=== PATIENT | female | born 1980 | race Hispanic/Latino ===

== ENCOUNTER 2020-01-05 20:14 | Emergency (ER) | payer SELFPAY ==
[2020-01-05 20:50] VITALS: BP 139/84
--- NOTE | 2020-01-05 21:12 | Emergency Department Report ---
{null, Blank Doc - Documentation Documentation: 39-year-old female that presents with headache and neck pain s/p tree branch f eel on patient. This initial assessment/diagnostic orders/clinical plan/treatment(s) is/are subject to change based on patient's health status, clinical progression and re- assessment by fellow clinical providers in the ED. Further treatment and workup at subsequent clinical providers discretion. Patient/guardians urged not to elope from the ED as their condition may be serious if not clinically assessed and managed. Initial orders include: 1- Patient sent to [facility] for further evaluation and treatment 2- CT scans 3- cervical collar }
--- NOTE | 2020-01-05 22:21 | Cat Scan Report ---
{null, CT head without contrast INDICATION : "tree fell on head". TECHNIQUE: Axial imaging performed from the skull apex through the skull base without the use of con trast. All CT scans at this location are performed using CT dose reduction for ALARA by means of aut omated exposure control. COMPARISON: CT head from 10/17/2014 FINDINGS: Parenchyma: No acute intracranial hemorrhage or parenchymal abnormality. Ventricles: Ventricles are normal in size and appear symmetric. Soft tissues: Soft tissues including the orbits appear normal. Bones: No acute osseous abnormality. Sinuses: Sinuses and mastoid air cells are clear. IMPRESSION: No acute abnormality. Signer Name: Dany Tello MD Signed: 01/05/2020 10:17 PM Workstation Name: [id number] }
--- NOTE | 2020-01-05 22:34 | Cat Scan Report ---
{null, CT cervical spine spine without contrast INDICATION: neck pain. TECHNIQUE: Axial imaging performed through the cervical spine without the use of contrast. Sagittal and coronal reconstructed images were also reviewed. All CT scans at this location are performed us ing CT dose reduction for ALARA by means of automated exposure control. COMPARISON: None FINDINGS: Alignment: Spinal alignment is normal. Bones: There is no acute osseous abnormality. Mild multilevel discogenic DJD is present. Soft tissues: No acute or significant incidental soft tissue abnormality. IMPRESSION: No acute abnormality. Signer Name: Dany Tello MD Signed: 01/05/2020 10:30 PM Workstation Name: [id number] }
[2020-01-05] MEDS ORDERED: ACETAMINOPHEN W/CODEINE 300-30 MG TAB PO ONE (23:42)
--- NOTE | 2020-01-05 23:47 | Emergency Department Report ---
{null, ED Head Trauma HPI - General Chief complaint: Head Injury Stated complaint: TREE FELL ON HEAD Time Seen by Provider: 01/05/20 21:11 Source: family Mode of arrival: Ambulatory Limitations: No Limitations - History of Present Illness Initial comments: Ms James is a 39 y/o w/f who presents for headache and neck pain s/p tree branch feel on patient. She states she was sitting at the dinner table and a tree branch came through the wall and struck in head. There was no LOC patient was immediately amatory after the incident she arrived to ED via POV and family member. She is alert oriented x3 ,ambulatory with steady gait, there are no abrasions lacerations or bleeding ,no obvious deformities or swelling. She describes headache is 4/10 exacerbated by movement and palpation. , Symptoms are relieved by rest. MD Complaint: head pain Onset/Timin -: hour(s) Mechanism of Injury: other (tree branch versus head ) Location: parietal (right ) Loss of Consciousness: no Previous Trauma to this Area: No Place: home Radiation: none Severity: moderate Severity scale (0 -10): 4 Quality: aching Consistency: constant Provoking factors: other (movement palpation) Other Injuries: none Associated Symptoms: denies: confusion, amnesia, repetitive questioning, vision changes, nausea, vomiting, vertigo, syncope, numbness, weakness, tingling, neck pain - Related Data Previous Rx's Medication Instructions Recorded Last Taken Type Acetaminophen/Codeine [Tylenol 1 tab PO Q6H PRN #12 tab 01/05/20 Unknown Rx /Codeine # 3 tab] Allergies/Adverse reactions: Allergies Allergy/AdvReac Type Severity Reaction Status Date / Time No Known Allergies Allergy Verified 10/17/14 03:43 ED Review of Systems ROS: Stated complaint: TREE FELL ON HEAD Other details as noted in HPI Constitutional: denies: chills, fever Eyes: denies: eye pain, eye discharge, vision change ENT: denies: ear pain, throat pain Respiratory: denies: cough, shortness of breath, wheezing Cardiovascular: denies: chest pain, palpitations Endocrine: no symptoms reported Gastrointestinal: denies: abdominal pain, nausea, diarrhea Genitourinary: denies: urgency, dysuria, discharge Musculoskeletal: denies: back pain, joint swelling, arthralgia Skin: denies: rash, lesions Neurological: headache. denies: weakness, numbness, paresthesias, confusion, abnormal gait, vertigo Psychiatric: denies: anxiety, depression Hematological/Lymphatic: denies: easy bleeding, easy bruising ED Past Medical Hx - Past Medical History Additional medical history: TBI many years ago. - Surgical History Additional Surgical History: Head surgery after TBI - Social History Smoking Status: Current Every Day Smoker Substance Use Type: Alcohol - Medications Home Medications: Home Medications Medication Instructions Recorded Confirmed Last Taken Type Acetaminophen/Codeine [Tylenol 1 tab PO Q6H PRN #12 tab 01/05/20 Unknown Rx /Codeine # 3 tab] ED Physical Exam - General Limitations: No Limitations General appearance: alert, in no apparent distress - Head Head exam: Present: atraumatic, normocephalic - Eye Eye exam: Present: normal appearance, PERRL, EOMI Pupils: Present: normal accommodation - ENT ENT exam: Present: normal orophraynx, mucous membranes moist, TM's normal bilaterally, normal external ear exam - Neck Neck exam: Present: normal inspection, full ROM. Absent: tenderness, lymphadenopathy, thyromegaly - Expanded Neck Exam Expanded Neck exam: Absent: tenderness (rom intact and unrestricted ), midline deformity, carotid bruit - Respiratory Respiratory exam: Present: normal lung sounds bilaterally, chest wall tenderness. Absent: respiratory distress, wheezes, rales, rhonchi, stridor - Cardiovascular Cardiovascular Exam: Present: regular rate, normal rhythm, normal heart sounds. Absent: systolic murmur, diastolic murmur, rubs, gallop - GI/Abdominal GI/Abdominal exam: Present: soft, normal bowel sounds. Absent: distended, tenderness, guarding, rebound, rigid, bruit, hernia - Rectal Rectal exam: Present: deferred - Extremities Exam Extremities exam: Present: normal inspection, full ROM. Absent: tenderness, pedal edema - Back Exam Back exam: Present: normal inspection, full ROM. Absent: tenderness, CVA tenderness (R), CVA tenderness (L), vertebral tenderness - Neurological Exam Neurological exam: Present: alert, oriented X3, CN II-XII intact, normal gait, reflexes normal. Absent: motor sensory deficit - Expanded Neurological Exam Expanded Patient oriented to: Present: person, place, time Speech: Present: fluid speech Cranial nerves: EOM's Intact: Normal, Gag Reflex: Normal, Tongue Deviation: Normal, Nystagmus: Normal, Facial Sensation: Normal Motor strength exam: RUE: 5, LUE: 5, RLE: 5, LLE: 5 Best Eye Response ([place]): (4) open spontaneously Best Motor Response ([place]): (6) obeys commands Best Verbal Response ([place]): (5) oriented [place] Total: 15 - Psychiatric Psychiatric exam: Present: normal affect, normal mood - Skin Skin exam: Present: warm, dry, intact, normal color. Absent: rash ED Course Vital Signs 01/05/20 20:47 Temperature 98.7 F Pulse Rate 99 H Respiratory 17 Rate Blood Pressure 139/84 O2 Sat by Pulse 98 Oximetry - Radiology Data Radiology results: report reviewed, image reviewed Findings [address] [address] Cat Scan Report Signed Patient: ANN MARIE JAMES MR#: [id number] : 1980 Acct:[id number] Age/Sex: 39 / F ADM Date: 01/05/20 Loc: ED Attending Dr: Ordering Physician: AURORA ANGELES NP Date of Service: 01/05/20 Procedure(s): CT cervical spine wo con Accession Number(s): [id number] cc: AURORA ANGELES NP CT cervical spine spine without contrast INDICATION: neck pain. TECHNIQUE: Axial imaging performed through the cervical spine without the use of contrast. Sagittal and coronal reconstructed images were also reviewed. All CT scans at this location are performed using CT dose reduction for ALARA by means of automated exposure control. COMPARISON: None FINDINGS: Alignment: Spinal alignment is normal. Bones: There is no acute osseous abnormality. Mild multilevel discogenic DJD is present. Soft tissues: No acute or significant incidental soft tissue abnormality. IMPRESSION: No acute abnormality. Signer Name: Dany Tello MD Signed: 01/05/2020 10:30 PM Workstation Name: [id number] Transcribed By: JW Dictated By: Dany Tello MD Electronically Authenticated By: Dany Tello MD Signed Date/Time: 01/05/202229 DD/ 28 TD/TT: Findings [address] [address] Cat Scan Report Signed Patient: ANN MARIE JAMES MR#: [id number] : 1980 Acct:[id number] Age/Sex: 39 / F ADM Date: 01/05/20 Loc: ED Attending Dr: Ordering Physician: MINDA MCKAY Date of Service: 01/05/20 Procedure(s): CT head/brain wo con Accession Number(s): [id number] cc: MINDA MCKAY CT head without contrast INDICATION : "tree fell on head". TECHNIQUE: Axial imaging performed from the skull apex through the skull base without the use of contrast. All CT scans at this location are performed using CT dose reduction for ALARA by means of automated exposure control. COMPARISON: CT head from 10/17/2014 FINDINGS: Parenchyma: No acute intracranial hemorrhage or parenchymal abnormality. Ventricles: Ventricles are normal in size and appear symmetric. Soft tissues: Soft tissues including the orbits appear normal. Bones: No acute osseous abnormality. Sinuses: Sinuses and mastoid air cells are clear. IMPRESSION: No acute abnormality. Signer Name: Dany Tello MD Signed: 01/05/2020 10:17 PM Workstation Name: [id number] Transcribed By: JW Dictated By: Dany Tello MD Electronically Authenticated By: Dany Tello MD Signed Date/Time: 01/05/202216 DD/ 15 TD/TT: - Medical Decision Making CT brain and C-spine are normal there is no abrasion laceration or bleeding. Patient is alert oriented x3 she is ambulatory with steady gait there is no dizziness, no head swelling. Patient with no acute distress. Plan Tylenol as needed for headache follow-up with PCP in 2 to 3 days return to ED should symptoms worsen. Patient given minor head injury precautions verbalized understanding of same. - NEXUS Criteria Focal neurological deficit present: No Midline spinal tenderness present: No Altered level of consciousness: No Intoxication present: No Distracting injury present: No NEXUS results: C-Spine can be cleared clinically by these results. Imaging is not required. Critical care attestation.: If time is entered above; I have spent that time in minutes in the direct care of this critically ill patient, excluding procedure time. ED Disposition Clinical Impression: Minor head injury Qualifiers: Encounter type: initial encounter Qualified Code(s): S09.90XA - Unspecified injury of head, initial encounter Headache Qualifiers: Headache type: unspecified Headache chronicity pattern: acute headache Intractability: not intractable Qualified Code(s): R51 - Headache Disposition: DC-01 TO HOME OR SELFCARE Is pt being admited?: No Does the pt Need Aspirin: No Condition: Stable Instructions: Acute Headache (ED), Minor Head Injury (ED) Prescriptions: Acetaminophen/Codeine [Tylenol /Codeine # 3 tab] 1 tab PO Q6H PRN #12 tab PRN Reason: pain Referrals: LESA MORAES MD [Staff Physician] - 3-5 Days Forms: Work/School Release Form(ED) Time of Disposition: 23:57 }
== END 2020-01-06 00:08 | disposition home or self-care (01) ==
LOC: ED 20:14
DX: S09.90XA Unspecified injury of head, initial encounter (principal); R51 Headache; F17.200 Nicotine dependence, unspecified, uncomplicated; Z98.890 Other specified postprocedural states; X58.XXXA Exposure to other specified factors, initial encounter; Y93.89 Activity, other specified; Y92.89 Other specified places as the place of occurrence of the external cause; Y99.8 Other external cause status
CPT/HCPCS: 70450; 72125